=== PATIENT | male | born 1945 | race Caucasian/White ===

== ENCOUNTER 2024-05-23 21:34 | Emergency (ER) | payer SELFPAY ==
[~2024-05-23] VITALS: Ht 175.3 cm; Wt 81.8 kg
[~2024-05-23 21:34] MED LIST: ASPIRIN 32325 MG/TAB PO; AVODART 0.5MG0.5 MG PO; BENADRYL25 M2 PO; BIOFLAX1000 MG PO; DIFLUCAN 100MG100 MG PO; FLAXSEED OIL1 CAP PO; LIPITOR 10MG10 MG PO; NORCO 325 MG-51 TAB PO; TYLENOL ARTHRI650 M1 PO; VIAGRA50 MG PO
[2024-05-23 21:43] VITALS: TEMP 98.3
[2024-05-23] MEDS ORDERED: LR 1,000 ML IV SCH (22:00)
[2024-05-23 22:10] LABS: BASO # 0.1 K/mm3 (0.0-0.2); BASO % 1.2 % (0.0-2.0); EOS # 0.4 K/mm3 (0.0-0.7); EOS % 4.7 % (0.0-4.0); GRAN % 72.8 % (42.2-75.2); HEMATOCRIT 45.9 % (42.0-52.0); HEMOGLOBIN 14.8 g/dl (13.5-18.0); LYMPH # 1.3 K/mm3 (1.2-3.4); LYMPH % 15.5 % (20.0-51.0); MEAN CELL VOLUME 89 fl (80.0-100.0); MEAN CORPUSCULAR HEMOGLOBIN 29 pg (27-31); MEAN CORPUSCULAR HGB CONC 32 g/dl (33.0-37.0); MEAN PLATELET VOLUME 9.9 fl (7.4-10.4); MONO # 0.4 K/mm3 (0.1-0.6); MONO % 5.3 % (1.7-9.3); PLATELET COUNT 180 K/mm3 (130-400); RED BLOOD COUNT 5.16 M/mm3 (4.20-5.60); REDCELL DISTRIBUTION WIDTH-CV 13.2 % (11.5-14.5)
[2024-05-23] MEDS ORDERED: Ondansetron 4 MG/2 ML VIAL IV ONE (22:15)
[2024-05-23] MEDS ORDERED: fentaNYL 50 MCG/ML 2 ML VIAL IV ONE (22:15)
[2024-05-23 22:20] LABS: PROTHROMBIN TIME 10.5 SECONDS (9.7-12.8)
[2024-05-23 22:32] LABS: ALBUMIN 4.2 g/dL (3.4-4.8); BILIRUBIN,TOTAL 0.9 mg/dL (0.2-1.2); CALCIUM 9.4 mg/dL (8.4-10.2); CREATININE, serum 1.34 mg/dL (0.72-1.25); POTASSIUM 4.7 mEq/L (3.5-4.5); TOTAL PROTEIN 6.7 g/dl (6.2-8.1)
[2024-05-23] MEDS ORDERED: Iohexol 300 - 100 ML VIAL IV ONE (22:44)
[2024-05-23] MEDS ORDERED: NS 50 ML IV ONE (22:46)
[2024-05-24 01:25] VITALS: BP 122/71; PULSE 72
[2024-05-24] MEDS ORDERED: Home HYDROcodone/Acetaminophen 5/325 MG #4 TABS/PACK PO ONE (01:30)
== END 2024-05-24 01:51 | disposition home or self-care (01) ==
LOC: COL.ER 21:34
PROVIDERS: Emergency Medicine
DX: S22.42XA Multiple fractures of ribs, left side, initial encounter for closed fracture (principal); S30.1XXA Contusion of abdominal wall, initial encounter; R94.4 Abnormal results of kidney function studies; V86.55XA Driver of 3- or 4- wheeled all-terrain vehicle (ATV) injured in nontraffic accident, initial encounter
CPT/HCPCS: J2405; J3010; J7120; Q9967